=== PATIENT | female | born 1980 ===

== ENCOUNTER 2018-09-10 09:59 | Emergency (ER) | payer BC, OTHER ==
[~2018-09-10] VITALS: Ht 162.6 cm; Wt 54.5 kg
[2018-09-10] MEDS ORDERED: NIFE30TA88 PO (10:28)
[2018-09-10] MEDS ORDERED: BUPR300T53 PO (10:28)
[2018-09-10] MEDS ORDERED: CILO100T PO (10:28)
[2018-09-10] MEDS ORDERED: ESZO3TAB38 PO (10:28)
[2018-09-10] MEDS ORDERED: QUET50TA PO (10:28)
[2018-09-10] MEDS ORDERED: ETHI1TAB26 PO (10:29)
[2018-09-10 10:44] VITALS: BP 111/82
== END 2018-09-10 10:45 | disposition home or self-care (01) ==
LOC: ER 10:00
DX: F41.9 Anxiety disorder, unspecified (principal); F32.9 Major depressive disorder, single episode, unspecified; Z76.0 Encounter for issue of repeat prescription; Z88.1 Allergy status to other antibiotic agents; Z79.899 Other long term (current) drug therapy
CPT/HCPCS: 99283